=== PATIENT | male | born 1950 | race Two or more races ===

== ENCOUNTER 2025-04-15 12:53 | Emergency (ER) | payer SELFPAY ==
[~2025-04-15] VITALS: Ht 160 cm; Wt 65.0 kg
[2025-04-15 13:11] VITALS: TEMP 36.8; O2SAT 98
[2025-04-15 13:38] LABS: BASOPHILS % 0.1 % (0.0-2.0); EOSINOPHILS % 0.0 % (0.0-5.0); HEMATOCRIT. 47.5 % (42.0-52.0); HEMOGLOBIN. 16.6 g/dL (14.0-18.0); LYMPHOCYTES % 10.5 % (20.0-50.0); MEAN PLATELET VOLUME 6.9 fl (7.4-10.4); MONOCYTES % 4.3 % (2.0-8.0); NEUTROPHILS % 85.1 % (40.0-76.0); PLATELET 245 x1000/uL (130-400); RED BLOOD CELL COUNT 4.52 mill/uL (4.7-6.1); RED CELL DISTRIBUTION WIDTH 12.5 % (11.6-14.6)
[2025-04-15 14:11] LABS: CREATININE 1.1 mg/dL (0.6-1.3); UREA NITROGEN BLOOD 17 mg/dL (9-23)
[2025-04-15 14:38] LABS: ETHANOL BLOOD < 10 mg/dL (<10)
[2025-04-15 14:39] LABS: TROPONIN I HIGH SENSITIVITY < 4 ng/L (3.0-53)
[2025-04-15 14:40] LABS: ASPARTATE AMINOTRANSFERASE 20 IU/L (<34); BILIRUBIN DIRECT 0.3 mg/dL (<=3.0); BILIRUBIN TOTAL 0.8 mg/dL (0.1-1.0)
[2025-04-15 14:41] LABS: PROTEIN TOTAL 8.1 g/dL (6.0-8.3)
[2025-04-15 15:00] LABS: INR 0.9
[2025-04-15 15:21] LABS: CLARITY URINE CLEAR (CLEAR); COLOR URINE YELLOW (YELLOW); GLUCOSE URINE 3+ (NEGATIVE); KETONES URINE 2+ (NEGATIVE); LEUKOCYTE ESTERASE URINE NEGATIVE (NEGATIVE); NITRITE URINE NEGATIVE (NEGATIVE); OCCULT BLOOD URINE TRACE (NEGATIVE); PH URINE 5.5 (4.5-8.0); PROTEIN URINE 2+ (NEGATIVE); SPECIFIC GRAVITY URINE 1.036 (1.005-1.030); UROBILINOGEN URINE 0.2 E.U./dL (0.2-1.0)
[2025-04-15 15:39] LABS: RBC URINE 0-2 /hpf (0-2); WBC URINE NONE SEEN /hpf (0-2)
[2025-04-15 15:40] LABS: BACTERIA URINE NONE SEEN; SQUAMOUS EPITHELIAL CELL URINE RARE /lpf (RARE/1+)
[2025-04-15 16:00] VITALS: BP 169/92; PULSE 100; RESP 16; O2SAT 100
[2025-04-15] MEDS: ONDANSETRON 4MG ODT PO ONE (16:06)
== END 2025-04-15 16:40 | disposition left against medical advice (07) ==
LOC: ER 12:53 → CMPBEDREQ 04-17 09:54
DX: R11.2 Nausea with vomiting, unspecified (principal); I25.2 Old myocardial infarction; E11.9 Type 2 diabetes mellitus without complications; Z90.49 Acquired absence of other specified parts of digestive tract; Z95.1 Presence of aortocoronary bypass graft; Z86.73 Personal history of transient ischemic attack (TIA), and cerebral infarction without residual deficits; Z79.899 Other long term (current) drug therapy; Z79.01 Long term (current) use of anticoagulants
CPT/HCPCS: 80076; 80048; 81003; 80320; 83690; 83735; 85025; 85610; 85730; 84484; 36415; 71045; 74176; 93005; 99285; Q0162; G0480